=== PATIENT | male | born 1955 | race Caucasian/White ===

== ENCOUNTER 2020-10-12 14:55 | Emergency (ER) | payer BC, OTHER ==
[2020-10-12] MEDS ORDERED: Sodium Chloride 0.9% 1,000 ML IV SCH (15:15)
--- NOTE | 2020-10-12 15:18 | EDM.PDOC ---
ED HPI GENERAL MEDICAL PROBLEM - General Chief Complaint: Trauma Stated Complaint: [facility] Time Seen by Provider: 10/12/20 15:00 Source of Information: Reports: Patient, EMS History Limitations: Reports: Intoxication, Other (dysarthric speech makes him a little bit hard to understand. ) - History of Present Illness INITIAL COMMENTS - FREE TEXT/NARRATIVE: 65-year-old male presents to the ED per [facility]. Apparently he resides [place] slightly self of [place]. Closer damage on. [place] with his twin brother. The history is difficult to fully understand. The history suggest that he fell yesterday injuring his right hip. He denies hitting his head or losing consciousness. Of note the patient is on Eliquis 5 mg twice daily for chronic atrial fib. Today he states he went out to shoot a new gun and decided in with his brother. They were drinking alcohol this morning. It is unclear exactly when he started to develop symptoms of difficulty walking and dysarthric speech. However it appears to be between 4 and 6 hours ago. Clinically he appears intoxicated with dysarthric speech. He answers all questions appropriately. He is not sleepy or lethargic. Denies headache nausea or vomiting. Neuro exam is grossly normal with no obvious obvious loss of motor power and tone while lying down. ECG confirms controlled atrial fibrillation at 78 to 90/min. Concern voiced by paramedics as whether or not he may have had a stroke. Of note the patient was coached into climbing off the gurney onto the bed and had some difficulties doing this but not due to weakness. More because he was clumsy and basically rolled from the gurney onto the cot. He reports he is a type II diabetic for about 18 years. Always controlled on oral medications. Paramedics report his blood sugar was 167. Currently we are not able to confirm his home medications. The only medication he can remember is his Eliquis 5 mg twice daily. Onset: Today Onset Date: 10/12/20 (Is hard to nail done a timeframe as to when he started to experience symptoms but it appears to be 4 to 6 hours ago.) Duration: Hour(s):, Constant (Arthritic speech and apparently some difficulty in walking.) Location: Reports: Generalized (Arthritic speech difficulty walking.) Quality: Reports: Other Severity: Moderate (Dysarthric speech and difficulty walking.) Improves with: Reports: None Worsens with: Reports: Other Context: Reports: Trauma (Yesterday contusing his right hip but denies hitting his head.). Denies: Activity, Exercise (Those are more noticeable apparently when he is trying to walk), Lifting, Sick Contact Associated Symptoms: Reports: Malaise. Denies: Confusion, Chest Pain, Cough, cough w sputum, Diaphoresis, Fever/Chills, Headaches, Loss of Appetite, Nausea/Vomiting, Rash, Seizure, Shortness of Breath, Syncope, Weakness Treatments ABSTRACT WRITER: Reports: Other (see below) (None.) - Related Data Allergies Allergy/AdvReac Type Severity Reaction Status Date / Time shellfish derived Allergy Rash Verified 10/12/20 15:07 Home Meds: Home Meds Apixaban [Eliquis] 5 mg PO BID 10/12/20 [History] Past Medical History Cardiovascular History: Reports: Afib (Has been in atrial fib for more than 2 years and currently is on Eliquis 5 mg twice daily.). Denies: Hypertension, MO Musculoskeletal History: Reports: Back Pain, Chronic Endocrine/Metabolic History: Reports: Diabetes, Type II (Reports type 2 diabetes is 18 years. Controlled with oral medications and diet.) Review of Systems - Review of Systems Review Of Systems: See Below Constitutional: Reports: Weakness (Legs difficulty walking.). Denies: Chills, Diaphoresis, Fever Eyes: Reports: Other (Patient has had multiple surgeries apparently on his left eye. He has had cataract extraction and intraocular lens implant right eye. Wearing a contact lens in his left eye. He states probably blood vessels medial aspect of the left eye has been present for many months.) Ears: Reports: No Symptoms Nose: Reports: No Symptoms Mouth/Throat: Reports: Other (Reports dysarthric speech.). Denies: Bleeding, Lip Swelling, Tongue Swelling, Loose Teeth, Pain, Throat Swelling, Hoarse Voice, Muffled Voice, Difficulty Swallowing Respiratory: Reports: Shortness of Breath. Denies: Wheezing, Pleuritic Chest Pain (On exertion at times.), Cough, Sputum Cardiovascular: Reports: Irregular Heart Rate (Atrial fibrillation for greater than 2 years. He is on Eliquis 5 mg twice daily.). Denies: Chest Pain, Edema GI/Abdominal: Reports: No Symptoms, Other (No previous abdominal surgery) Genitourinary: Reports: Other Musculoskeletal: Reports: Neck Pain (Mid neck and low back pain), Back Pain (Urinary frequency. Nocturia usually x2 or 3.) Skin: Reports: Bruising (This is easily as he is on Eliquis twice daily.) Neurological: Reports: Difficulty Walking (Occultly walking today reported by the patient.), Other (Dysarthric speech at presentation to the ED.). Denies: Confusion, Dizziness, Headache, Numbness, Syncope, Tingling Psychiatric: Reports: No Symptoms, Other (Ataxic gait when up and walking in the ED. history of peripheral neuropathy both lower extremities for greater than 5 years.) ED EXAM, GENERAL - Physical Exam Exam: See Below Exam Limited By: No Limitations General Appearance: Alert, WD/WN, No Apparent Distress, Other (Dysarthric speech appreciated on examination he answers all questions appropriately however. Tem perature is 36.6 pulse is 89 and sinus on physical exam. He is in atrial fib with a controlled rate of between 78 and 90/min on the ECG. Respiratory to 16 with O2 sats of 98% room air BP 11/07/1977.) Eye Exam: Left Eye: Normal Inspection (Patient has prominent blood vessels i.e. conjunctival proud vasculature medial aspect of left eye. Both eyes have undergone surgery with cataract extractions and intraocular lens implants. He has a contact lens in his left eye.), Bilateral Eye: Nystagmus (Mild nystagmus on lateral gaze bilaterally.), PERRL Throat/Mouth: Other (Tongue is dry and coated. Specks of tobacco noted in the oropharynx) Head: Atraumatic, Normocephalic, Other Neck: Normal Inspection (Are no outward signs of head or facial trauma.), Supple, Non-Tender, Full Range of Motion. No: Carotid Bruit, Lymphadenopathy (L), Lymphadenopathy (R) Respiratory/Chest: No Respiratory Distress, Lungs Clear, Normal Breath Sounds, No Accessory Muscle Use Cardiovascular: Regular Rate, Rhythm, No Gallop, No Murmur, Irregularly Irregular (Feels regular in the 80s on exam. Monitor shows atrial fibrillation from 78 to 90/min.). No: No Edema Peripheral Pulses: 2+: Carotid (L), Carotid (R), Posterior Tibial (L), Posterior Tibial (R), Dorsalis Pedis (L), Dorsalis Pedis (R) GI/Abdominal: Normal Bowel Sounds, Soft (Feet are cool to touch.), Non-Tender, No Organomegaly, No Mass, Pelvis Stable, Other (Moderately obese. Nontender. No surgical scars. Abdominal girth limits ability to palpate solid organs.). No: Guarding ( no surgical scars), Rigid, Rebound Back Exam: Normal Inspection, Full Range of Motion. No: CVA Tenderness (L), CVA Tenderness (R) Extremities: Normal Inspection, Normal Range of Motion, Non-Tender, No Pedal Edema Neurological: Alert, Oriented, CN II-XII Intact, Normal Cognition, Other (No motor, power or tone deficit appreciated in any of his upper extremities or lower extremities. Deep tendon reflexes are 2+ and symmetrical upper extremities at the brachioradialis and biceps as well as at the knees and ankles. No sustained clonus. He had difficulty performing [id number] evaluation due to ataxia in both upper extremities. Axial gait when we got him up walking in the hallway to the bathroom and back.) Psychiatric: Normal Affect, Normal Mood Skin Exam: Warm, Dry, Intact, Normal Color, No Rash, Other (Remedies are cool to touch as if he has been outside for period of time.) Lymphatic: No Adenopathy #1 Interpretation EKG Date: 10/12/20 Time: 15:04 Rhythm: A-Fib (Is ectopic atrial rhythm with a rate of 78 to 90/min.) Rate (Beats/Min): 89 [place]: LAD-Left [place] Deviation (Minimal left axis deviation of -3 degrees) P-Wave: Variable QRS: Other (Decreased voltage both limb and precordial leads. There is early R wave transition V3 suggestive of septal hypertrophy pattern. Q waves in lead III and questionable in aVF. Consider old inferior wall myocardial infarction.) ST-T: Other (T wave flattening lead V1 V2 lead III and aVL nonspecific findings.) QT: Normal EKG Interpretation Comments: Abnormal ECG Course - Vital Signs Last Recorded V/S: Last Vital Signs Temp 36.0 C L 10/12/20 15:06 Pulse 81 10/12/20 15:06 Resp 16 10/12/20 15:06 BP 129/78 10/12/20 15:06 Pulse Ox 98 10/12/20 15:06 - Orders/Labs/Meds Labs: Laboratory Tests 10/12/20 10/12/20 10/12/20 Range/Units 15:00 15:00 15:00 WBC 7.10 (4.23-9.07) K/mm3 RBC 3.77 L (4.63-6.08) M/mm3 Hgb 10.3 L (13.7-17.5) gm/dl Hct 33.3 L (40.1-51.0) % MCV 88.3 (79.0-92.2) fl MCH 27.3 (25.7-32.2) pg MCHC 30.9 L (32.2-35.5) g/dl RDW Std Deviation 53.5 H (35.1-43.9) fL Plt Count 296 (163-337) K/mm3 MPV 9.6 (9.4-12.3) fl Neut % (Auto) 59.9 (34.0-67.9) % Lymph % (Auto) 28.7 (21.8-53.1) % [place] % (Auto) 9.9 (5.3-12.2) % Eos % (Auto) 0.8 (0.8-7.0) Baso % (Auto) 0.6 (0.1-1.2) % Neut # (Auto) 4.25 (1.78-5.38) K/mm3 Lymph # (Auto) 2.04 (1.32-3.57) K/mm3 [place] # (Auto) 0.70 (0.30-0.82) K/mm3 Eos # (Auto) 0.06 (0.04-0.54) K/mm3 Baso # (Auto) 0.04 (0.01-0.08) K/mm3 PT 11.3 (9.7-12.0) SECONDS INR 1.06 APTT 23.4 (21.7-31.4) SECONDS Sodium 142 (136-145) mEq/L Potassium 3.6 (3.5-5.1) mEq/L Chloride 105 (98-107) mEq/L Carbon Dioxide 28 (21-32) mEq/L Anion Gap 12.6 (5-15) BUN 38 H (7-18) mg/dL Creatinine 2.1 H (0.7-1.3) mg/dL Est Cr Clr Drug Dosing 35.24 mL/min Estimated GFR (MDRD) 32 (>60) mL/min BUN/Creatinine Ratio 18.1 H (14-18) Glucose 130 H (80-115) mg/dL Hemoglobin A1c (4.50-6.20) % Calcium 9.4 (8.5-10.1) mg/dL Magnesium 2.1 (1.8-2.4) mg/dl Total Bilirubin 0.3 (0.2-1.0) mg/dL AST 28 (15-37) U/L ALT 31 (16-63) U/L Alkaline Phosphatase 88 (46-116) U/L Creatine Kinase (39-308) U/L CK-MB (CK-2) 6.8 H (0-3.6) ng/ml Troponin I 0.017 (0.00-0.056) ng/mL C-Reactive Protein 0.2 (<1.0) mg/dL NT-Pro-B Natriuret Pep (0-125) pg/mL Total Protein 7.6 (6.4-8.2) g/dl Albumin 3.5 (3.4-5.0) g/dl Globulin 4.1 gm/dL Albumin/Globulin Ratio 0.9 L (1-2) Urine Color (Yellow) Urine Appearance (Clear) Urine pH (5.0-8.0) Ur Specific [place] (1.005-1.030) Urine Protein (Negative) Urine Glucose (UA) (Negative) Urine Ketones (Negative) Urine Occult Blood (Negative) Urine Nitrite (Negative) Urine Bilirubin (Negative) Urine Urobilinogen (0.2-1.0) Ur Leukocyte Esterase (Negative) Urine RBC (0-5) /hpf Urine WBC (0-5) /hpf Ur Squamous Epith Cells (0-5) /hpf Urine Bacteria (FEW) /hpf Urine Mucus (FEW) /hpf Ethyl Alcohol 0.33 (0.00) gm% 10/12/20 10/12/20 10/12/20 Range/Units 15:00 15:00 15:00 WBC (4.23-9.07) K/mm3 RBC (4.63-6.08) M/mm3 Hgb (13.7-17.5) gm/dl Hct (40.1-51.0) % MCV (79.0-92.2) fl MCH (25.7-32.2) pg MCHC (32.2-35.5) g/dl RDW Std Deviation (35.1-43.9) fL Plt Count (163-337) K/mm3 MPV (9.4-12.3) fl Neut % (Auto) (34.0-67.9) % Lymph % (Auto) (21.8-53.1) % [place] % (Auto) (5.3-12.2) % Eos % (Auto) (0.8-7.0) Baso % (Auto) (0.1-1.2) % Neut # (Auto) (1.78-5.38) K/mm3 Lymph # (Auto) (1.32-3.57) K/mm3 [place] # (Auto) (0.30-0.82) K/mm3 Eos # (Auto) (0.04-0.54) K/mm3 Baso # (Auto) (0.01-0.08) K/mm3 PT (9.7-12.0) SECONDS INR APTT (21.7-31.4) SECONDS Sodium (136-145) mEq/L Potassium (3.5-5.1) mEq/L Chloride (98-107) mEq/L Carbon Dioxide (21-32) mEq/L Anion Gap (5-15) BUN (7-18) mg/dL Creatinine (0.7-1.3) mg/dL Est Cr Clr Drug Dosing mL/min Estimated GFR (MDRD) (>60) mL/min BUN/Creatinine Ratio (14-18) Glucose (80-115) mg/dL Hemoglobin A1c 9.70 H (4.50-6.20) % Calcium (8.5-10.1) mg/dL Magnesium (1.8-2.4) mg/dl Total Bilirubin (0.2-1.0) mg/dL AST (15-37) U/L ALT (16-63) U/L Alkaline Phosphatase (46-116) U/L Creatine Kinase 167 (39-308) U/L CK-MB (CK-2) (0-3.6) ng/ml Troponin I (0.00-0.056) ng/mL C-Reactive Protein (<1.0) mg/dL NT-Pro-B Natriuret Pep 40 (0-125) pg/mL Total Protein (6.4-8.2) g/dl Albumin (3.4-5.0) g/dl Globulin gm/dL Albumin/Globulin Ratio (1-2) Urine Color (Yellow) Urine Appearance (Clear) Urine pH (5.0-8.0) Ur Specific [place] (1.005-1.030) Urine Protein (Negative) Urine Glucose (UA) (Negative) Urine Ketones (Negative) Urine Occult Blood (Negative) Urine Nitrite (Negative) Urine Bilirubin (Negative) Urine Urobilinogen (0.2-1.0) Ur Leukocyte Esterase (Negative) Urine RBC (0-5) /hpf Urine WBC (0-5) /hpf Ur Squamous Epith Cells (0-5) /hpf Urine Bacteria (FEW) /hpf Urine Mucus (FEW) /hpf Ethyl Alcohol (0.00) gm% 10/12/20 Range/Units 15:30 WBC (4.23-9.07) K/mm3 RBC (4.63-6.08) M/mm3 Hgb (13.7-17.5) gm/dl Hct (40.1-51.0) % MCV (79.0-92.2) fl MCH (25.7-32.2) pg MCHC (32.2-35.5) g/dl RDW Std Deviation (35.1-43.9) fL Plt Count (163-337) K/mm3 MPV (9.4-12.3) fl Neut % (Auto) (34.0-67.9) % Lymph % (Auto) (21.8-53.1) % [place] % (Auto) (5.3-12.2) % Eos % (Auto) (0.8-7.0) Baso % (Auto) (0.1-1.2) % Neut # (Auto) (1.78-5.38) K/mm3 Lymph # (Auto) (1.32-3.57) K/mm3 [place] # (Auto) (0.30-0.82) K/mm3 Eos # (Auto) (0.04-0.54) K/mm3 Baso # (Auto) (0.01-0.08) K/mm3 PT (9.7-12.0) SECONDS INR APTT (21.7-31.4) SECONDS Sodium (136-145) mEq/L Potassium (3.5-5.1) mEq/L Chloride (98-107) mEq/L Carbon Dioxide (21-32) mEq/L Anion Gap (5-15) BUN (7-18) mg/dL Creatinine (0.7-1.3) mg/dL Est Cr Clr Drug Dosing mL/min Estimated GFR (MDRD) (>60) mL/min BUN/Creatinine Ratio (14-18) Glucose (80-115) mg/dL Hemoglobin A1c (4.50-6.20) % Calcium (8.5-10.1) mg/dL Magnesium (1.8-2.4) mg/dl Total Bilirubin (0.2-1.0) mg/dL AST (15-37) U/L ALT (16-63) U/L Alkaline Phosphatase (46-116) U/L Creatine Kinase (39-308) U/L CK-MB (CK-2) (0-3.6) ng/ml Troponin I (0.00-0.056) ng/mL C-Reactive Protein (<1.0) mg/dL NT-Pro-B Natriuret Pep (0-125) pg/mL Total Protein (6.4-8.2) g/dl Albumin (3.4-5.0) g/dl Globulin gm/dL Albumin/Globulin Ratio (1-2) Urine Color Yellow (Yellow) Urine Appearance Clear (Clear) Urine pH 6.0 (5.0-8.0) Ur Specific [place] 1.020 (1.005-1.030) Urine Protein 2+ H (Negative) Urine Glucose (UA) Negative (Negative) Urine Ketones Negative (Negative) Urine Occult Blood Negative (Negative) Urine Nitrite Negative (Negative) Urine Bilirubin Negative (Negative) Urine Urobilinogen 0.2 (0.2-1.0) Ur Leukocyte Esterase Negative (Negative) Urine RBC 0-5 (0-5) /hpf Urine WBC 0-5 (0-5) /hpf Ur Squamous Epith Cells 0-5 (0-5) /hpf Urine Bacteria Few (FEW) /hpf Urine Mucus Few (FEW) /hpf Ethyl Alcohol (0.00) gm% Meds: Medications Discontinued Medications Generic Name Dose Route Start Last Admin Trade Name Freq PRN Reason Stop Dose Admin Sodium Chloride 1,000 mls @ 100 mls/hr 10/12/20 15:15 10/12/20 15:35 Normal Saline IV 100 mls/hr ASDIRECTED [facility] Administration - Radiology Interpretation Free Text/Narrative:: 65-year-old male presents to the ED per [facility]. They were called out to suspect stroke with patient being dysarthric and apparently having trouble walking. Patient reports he went out to site in a gun with his twin brother this morning [place]. He found that he could not shoot the gun accurately. They were drinking alcohol this morning. Is difficult to pin down exactly when his symptoms may have started but it seems like 4 to 6 hours ago. He denies headache nausea or vomiting. His speech is dysarthric and clinically he appears intoxicated by alcohol. I could find no motor power tone deficit in any of his extremities. Reflexes are normal. He has a history of atrial fibrillation and appears to be in atrial fib with controlled rate in the 80s. This is on ECG. No signs of ischemia. He apparently is on Eliquis 5 mg twice daily. He reports that he is a type II diabetic for about 18 years. Paramedics checked his blood sugar was 167 on scene. Patient is tongue is dry and he has not yet eaten today. He denies any nausea vomiting. Apparently did have a fall outside yesterday contusing his right hip. He denies hitting his head or losing consciousness. Therefore it is difficult to pin down exact time of when he started develop neurological symptoms. He is alert and oriented answers all questions appropriately but speech is definitely dysarthric. Plan CT head will be done because of history of fall yesterday and on Eliquis. Routine chest x-ray ECG and labs to be done. IV will be normal saline 100 mils per hour - Re-Assessments/Exams Free Text/Narrative Re-Assessment/Exam: 10/12/20 15:31 CT of the brain has been completed. It appears to be completely within normal limits showing no sign of ischemic change or intracranial hemorrhage or mass-effect. There is mild associated senescent changes with mild ischemic change in both basal ganglia from small vessel ischemic change. This appears to be age-related. Bone windows do not show any evidence of soft tissue swelling. ECG suggest atrial fibrillation with a controlled rate in the 80s. No signs of ischemia. Patient is up and walking to the bathroom at this point time. He does have a mildly ataxic gait but appears to be under the influence of alcohol to be the cause of this. X-ray done portably I am to be normal. Slight area of atelectasis or scarring is seen within the left lung base. Left hemidiaphragm shows blunting with adjacent pleural thickening which is most likely chronic. Lungs otherwise are clear. Bony structures are grossly intact. Pulmonary artery is moderately prominent on the right side. 10/12/20 15:57 White count is normal at 7.10. Differential on the white count shows 60% neutrophils. Hemoglobin is slightly low at 10.3 with hematocrit of 33.3. MCV is normal at 88.3. Platelet count is normal at 296,000. PT is 11.3 with an INR of 1.06 PTT is 23.4. Sodium is 142 with a potassium of 3.6. Chloride 105 with a bicarb of 28. Anion gap is 12.6. BUN is 38 with a creati nine of 2.1 and a GFR only of 32 i.e. stage IIIb chronic renal insufficiency. BUN/creatinine ratio is minimally elevated at 18.1. Glucose 130 with a hemoglobin A1c of 9.70 indicating very poor control of his blood sugars. Calcium is 9.4 the magnesium of 2.1 liver function normal. CK-MB fraction is elevated at 6.8. Troponin I was less than 0.017. Suspect total CPK will be elevated due to injury yesterday. BNP is normal at 40. Total protein 7.6 with an albumin fraction of 3.5. Blood alcohol is 0.33 g%. Urinalysis shows 2+ proteinuria but no signs of infection. It appears therefore that his neurological dysfunction i.e. ataxia and dysarthria secondary to acute alcohol intoxication. Departure - Departure Time of Disposition: 18:01 Disposition: Home, Self-Care 01 Condition: Fair Clinical Impression: Acute alcohol intoxication Qualifiers: Complication of substance-induced condition: uncomplicated Qualified Code(s): F10.920 - Alcohol use, unspecified with intoxication, uncomplicated Uncontrolled type 2 diabetes mellitus Qualifiers: Coma presence: without coma - Discharge Information *PRESCRIPTION DRUG MONITORING PROGRAM REVIEWED*: Not Applicable *COPY OF PRESCRIPTION DRUG MONITORING REPORT IN PATIENT JEAN PIERRE: Not Applicable Instructions: Type 2 Diabetes Mellitus, Diagnosis, Adult Referrals: PCP,None [Primary Care Provider] - Forms: ED Department Discharge Additional Instructions: Evaluation in the emergency room today in regards to concerns for possible stroke as voiced by paramedics that brought her to the hospital. Apparently you developed inability to suture done this morning with your brother. Transient confusion concerning for possible low blood sugar since you hardly ate anything yesterday. Blood sugar when they checked you was 130. We found no evidence of stroke. Dysarthria or trouble speaking appears to be secondary to alcohol intoxication as does your abnormal walking i.e. ataxic gait. Blood alcohol was found to be markedly elevated at 0.33 g%. Remember 0.08 g% is too high to operate a motor vehicle without getting a DUI. No other abnormalities were identified on CT scan of the brain other than age-appropriate mild degenerative change. Identified blood sugars are poorly controlled with your glycosylated protein at 9.7. This measurement looks back at your blood sugars over the last 3 months and in time it is over 9 it indicates that the blood sugar control is very poor and further medications are required to bring it under control. Your kidneys are also suffering diabetic injury which we call renal insufficiency typ e IIIb. It is important to get control of your blood sugars to prevent further kidney destruction and potential need for dialysis within the next 1 to 2 years. Suggest follow-up with your personal care physician in regards to the above problems. At this point time home to sleep to sleep off the current alcohol intoxication. Follow-up with personal care physician if any further problems are evident. Sepsis Event Note (ED) - Evaluation Sepsis Screening Result: No Definite Risk - Focused Exam Vital Signs: Vital Signs Temp Pulse Resp BP Pulse Ox 10/12/20 15:06 36.0 C L 81 16 129/78 98 10/12/20 14:57 36.6 C 89 16 129/78 98
[2020-10-12 15:43] LABS: HEMOGLOBIN A1C 9.7 % (4.50-6.20)
--- NOTE | 2020-10-12 15:43 | CT ---
Head CT Technique: Multiple axial sections through the brain were obtained. Intravenous contrast was not utilized. Comparison: No prior intracranial imaging is available. Findings: Ventricles along the basal cisterns and sulci over the convexities are slightly prominent. No abnormal parenchymal densities are seen. No evidence of intracranial hemorrhage. No midline shift or mass-effect is appreciated. Bone window settings were reviewed. Visualized paranasal sinuses show nothing acute. Visualized mastoid sinuses show nothing acute. Impression: 1. Minimal senescent change. 2. Nothing acute is definitely appreciated on noncontrast CT study of the brain. Diagnostic code #2
--- NOTE | 2020-10-12 15:46 | CR ---
Chest: Portable view of the chest was obtained. Comparison: No prior chest imaging is available. Heart size and mediastinum are normal. Slight area of atelectasis or scarring is seen within the left lung base. Left hemidiaphragm shows blunting with adjacent pleural thickening which is most likely chronic. Lungs otherwise are clear. Bony structures are grossly intact. Impression: 1. Slight blunting of the lateral left costophrenic angle with mild adjacent pleural thickening. These findings are most likely chronic. 2. Slight atelectasis or scarring within the left base. 3. Nothing acute is otherwise seen. Diagnostic code #2
== END 2020-10-12 18:09 | disposition home or self-care (01) ==
LOC: JD.ED 14:55
DX: E11.65 Type 2 diabetes mellitus with hyperglycemia (principal); F10.120 Alcohol abuse with intoxication, uncomplicated; I48.91 Unspecified atrial fibrillation; Z79.01 Long term (current) use of anticoagulants; Z79.899 Other long term (current) drug therapy; Z91.013 Allergy to seafood; Y90.8 Blood alcohol level of 240 mg/100 ml or more
CPT/HCPCS: 36415; 70450; 71045; 80053; 80179; 81001; 82550; 82553; 83036; 83735; 83880; 84484; 85025; 85610; 85730; 86140; 93005; 99285; J7030; 93010; 99284